=== PATIENT | female | born 1990 | race Caucasian/White ===

== ENCOUNTER 2017-12-10 10:47 | Emergency (ER) | payer OTHER ==
[2017-12-10 11:22] VITALS: BP 135/79; PULSE 62; TEMP 97.6; O2SAT 97
== END 2017-12-10 11:50 | disposition home or self-care (01) | DRG 951 ==
LOC: ED 10:47
DX: Z03.79 Encounter for other suspected maternal and fetal conditions ruled out (principal); Z3A.30 30 weeks gestation of pregnancy
CPT/HCPCS: 59025; 99282; 99283